=== PATIENT | female | born 1990 | race Asian ===

== ENCOUNTER 2022-05-21 00:46 | Emergency (ER) | payer BC ==
[~2022-05-21] VITALS: Ht 154.9 cm; Wt 161.0 kg
[2022-05-21 00:56] VITALS: BP 143/88
== END 2022-05-21 01:20 ==
LOC: ER 00:47
DX: F10.129 Alcohol abuse with intoxication, unspecified (principal); Y90.9 Presence of alcohol in blood, level not specified
CPT/HCPCS: 99283